=== PATIENT | female | born 1990 | race African-American/Black ===

== ENCOUNTER 2019-03-15 10:16 | Inpatient (IN) | payer MEDICAID ==
[~2019-03-15] VITALS: Ht 167.6 cm; Wt 109.8 kg
[2019-03-15 11:01] VITALS: BP 123/87
[2019-03-15] MEDS ORDERED: LORazepam 2 MG TABLET PO PRN (12:00)
[2019-03-15] MEDS ORDERED: ZOLPIDEM TARTRATE 10 MG TABLET PO PRN (12:00)
[2019-03-15 12:40] VITALS: BP 132/84
[2019-03-15] MEDS ORDERED: CEPH500 PO (15:16)
[2019-03-15 16:08] VITALS: BP 126/94
[2019-03-15] MEDS: CEPHALEXIN MONOHYDRATE 500 MG CAPSULE PO SCH (16:30)
[2019-03-16 06:23] VITALS: BP 112/64
[2019-03-16 07:15] LABS: BASOPHILS % (AUTO) 0.4 % (0.0-2.0); EOSINOPHILS % (AUTO) 4.5 % (1.0-6.0); HEMATOCRIT 36.2 % (36-46); HEMOGLOBIN 12.2 g/dL (12.0-16.0); MEAN CORPUSCULAR HEMOGLOBIN 29.3 pg (26.0-34.0); MEAN CORPUSCULAR HGB CONC 33.7 G/dL (31.0-37.0); MEAN CORPUSCULAR VOLUME 87 fL (80-100); MONOCYTES # (AUTO) 0.4 K/uL (0.1-1.0); MONOCYTES % (AUTO) 6.6 % (2.0-9.0); NEUTROPHILS # (AUTO) 3.2 K/uL (1.8-7.7); NEUTROPHILS % (AUTO) 54.5 % (40.0-70.0); PLATELET COUNT (AUTO) 277 K/uL (150-450); RED BLOOD CELL COUNT(AUTO) 4.17 MIL/uL (4.00-5.20); RED CELL DISTRIBUTION WIDTH 14.9 % (11.5-14.5)
[2019-03-16] MEDS ORDERED: MAGNESIUM HYDROXIDE SUSPENSION 30 ML UDCUP PO PRN (07:45)
[2019-03-16] MEDS ORDERED: MAG HYDROX/AL HYDROX/SIMETH ES 30 ML SUSPENSION UDCUP PO PRN (07:45)
[2019-03-16] MEDS ORDERED: PETROLATUM,WHITE 28 GM JELLY TP PRN (07:45)
[2019-03-16] MEDS ORDERED: ACETAMINOPHEN 325 MG TABLET PO PRN (07:45)
[2019-03-16] MEDS ORDERED: LOPERAMIDE HCL 2 MG CAPSULE PO PRN (07:45)
[2019-03-16] MEDS ORDERED: NICOTINE 14 MG/24 HOUR PATCH TD PRN (07:45)
[2019-03-16] MEDS ORDERED: DOCUSATE SODIUM 100 MG CAPSULE PO PRN (07:45)
[2019-03-16] MEDS ORDERED: ONDANSETRON HCL 4 MG TABLET PO PRN (07:45)
[2019-03-16] MEDS ORDERED: GuaiFENesin/D-METHORPHAN [SUGAR-FREE] 200-20MG/10 ML SYRUP UDCUP PO PRN (07:45)
[2019-03-16] MEDS ORDERED: ALBUTEROL SULFATE HFA 90 MCG/PUFF 8 GM INHALER IH PRN (07:45)
[2019-03-16] MEDS ORDERED: IBUPROFEN 400 MG TABLET PO PRN (07:45)
[2019-03-16] MEDS ORDERED: CloNIDine HCL 0.1 MG TABLET PO PRN (07:45)
[2019-03-16] MEDS: HALOPERIDOL 5 MG TABLET PO PRN (08:19)
[2019-03-16] MEDS: CEPHALEXIN MONOHYDRATE 500 MG CAPSULE PO SCH ×3 (08:19→16:42)
[2019-03-16 08:23] VITALS: BP 127/57
[2019-03-16 08:32] LABS: ALANINE AMINOTRANSFERASE 22 U/L (12-78); ALKALINE PHOSPHATASE 64 U/L (46-116); ANION GAP 6 mmol/L (8-16); ASPARTATE AMINOTRANSFERASE 8 U/L (15-37); CALCIUM, TOTAL 8.9 mg/dL (8.8-10.5); CARBON DIOXIDE 29 mmol/L (22-29); CHLORIDE 105 mmol/L (98-107); CHOL/HDL RATIO 3.2 (3.9-5.7); CHOLESTEROL 132 mg/dL (131-200); CREATININE 0.85 mg/dL (0.60-1.30); FREE T4 (FREE THYROXINE) 1.07 ng/dL (0.76-1.46); GLOMERULAR FILTR. RATE CALC > 60 mL/min (>60); GLUCOSE,RANDOM 89 mg/dL (70-110); HCG,QUANTITATIVE < 1 mIU/mL (0-6); HDL CHOLESTEROL 41 mg/dL (40-60); POTASSIUM 4.6 mmol/L (3.5-5.1); SODIUM SERUM 140 mmol/L (136-145); THYROID STIMULATING HORMONE 1.56 uIU/mL (0.36-3.74); TOTAL PROTEIN, SERUM 6.9 g/dL (6.4-8.2)
[2019-03-16 08:44] LABS: ALBUMIN 3.2 g/dL (3.4-5.0); BILIRUBIN,TOTAL 0.3 mg/dL (0.1-1.0); LDL CHOL (CALC.) 76 mg/dL (0-130); TRIGLYCERIDES 74 mg/dL (15-150); UREA NITROGEN, BLOOD 13 mg/dL (7-18)
[2019-03-16] MEDS ORDERED: LURASIDONE HCL 40 MG TABLET PO ONE (12:00)
[2019-03-16 16:00] VITALS: BP 128/81
[2019-03-16] MEDS: LURASIDONE HCL 40 MG TABLET PO SCH (16:42)
[2019-03-17 06:33] VITALS: BP 109/68
[2019-03-17] MEDS: LURASIDONE HCL 40 MG TABLET PO SCH (06:59)
[2019-03-17 08:24] VITALS: BP 123/71
[2019-03-17] MEDS: CEPHALEXIN MONOHYDRATE 500 MG CAPSULE PO SCH ×3 (08:27→16:02)
[2019-03-17] MEDS: HALOPERIDOL 5 MG TABLET PO PRN (08:31)
[2019-03-17] MEDS ORDERED: DiphenhydrAMINE HCL 50 MG/ML VIAL IM ONE (11:30)
[2019-03-17] MEDS ORDERED: DiphenhydrAMINE HCL 50 MG/ML VIAL ONE (11:33)
[2019-03-17 16:05] VITALS: BP 120/66
[2019-03-18 06:42] VITALS: BP 123/72
[2019-03-18] MEDS: LURASIDONE HCL 40 MG TABLET PO SCH (06:45)
[2019-03-18] MEDS: BENZTROPINE MESYLATE 0.5 MG TABLET PO SCH (06:45)
[2019-03-18] MEDS: CEPHALEXIN MONOHYDRATE 500 MG CAPSULE PO SCH ×3 (08:15→16:18)
[2019-03-18 08:17] VITALS: BP 122/69
[2019-03-18 16:20] VITALS: BP 114/72
[2019-03-19 05:00] VITALS: BP 126/86
[2019-03-19] MEDS: LURASIDONE HCL 40 MG TABLET PO SCH (06:33)
[2019-03-19] MEDS: BENZTROPINE MESYLATE 0.5 MG TABLET PO SCH (06:33)
[2019-03-19 08:28] VITALS: BP 117/93
[2019-03-19] MEDS: CEPHALEXIN MONOHYDRATE 500 MG CAPSULE PO SCH ×3 (08:37→16:35)
[2019-03-19] MEDS ORDERED: LURA40 PO (15:21)
[2019-03-19] MEDS ORDERED: BENZ0.5T44 PO (15:21)
[2019-03-19] MEDS ORDERED: CEPH500 PO (15:49)
== END 2019-03-19 17:00 | disposition home or self-care (01) | DRG 750 ==
LOC: B3A 12:18
DX: F20.0 Paranoid schizophrenia (principal); R45.851 Suicidal ideations; D64.9 Anemia, unspecified; F12.90 Cannabis use, unspecified, uncomplicated; N39.0 Urinary tract infection, site not specified; Z81.8 Family history of other mental and behavioral disorders; Z91.5 Personal history of self-harm
CPT/HCPCS: 84439; 84443; J1200